=== PATIENT | female | born 2005 | race Caucasian/White ===

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

== ENCOUNTER 2023-09-19 09:17 | Emergency (ER) | payer OTHER ==
[2023-09-19 09:25] VITALS: RESP 18; TEMP 98.4; BMI 25.6
[2023-09-19] MEDS ORDERED: ACETAMINOPHEN 325 MG TABLET (FP) ONE (10:31)
[2023-09-19] MEDS: ACETAMINOPHEN 325 MG TABLET (FP) PO ONE (10:35)
[2023-09-19 10:36] LABS: URINE APPEARANCE CLEAR; URINE BILIRUBIN NEGATIVE (NEGATIVE); URINE COLOR YELLOW; URINE GLUCOSE (UA) NEGATIVE (NEGATIVE); URINE KETONE NEGATIVE (NEGATIVE); URINE LEUK ESTERASE NEGATIVE (NEGATIVE); URINE NITRITE NEGATIVE (NEGATIVE); URINE PROTEIN NEGATIVE (NEGATIVE); URINE UROBILINOGEN 0.2 mg/dL (0.2-1.0)
[2023-09-19 10:39] LABS: HCG,QUALITATIVE URINE Positive
[2023-09-19 14:43] VITALS: BP 118/60; PULSE 74
== END 2023-09-19 14:43 | disposition home or self-care (01) ==
LOC: JER 09:17
DX: O26.891 Other specified pregnancy related conditions, first trimester (principal); R10.30 Lower abdominal pain, unspecified; O99.891 Other specified diseases and conditions complicating pregnancy; R11.0 Nausea; Z3A.01 Less than 8 weeks gestation of pregnancy
CPT/HCPCS: 36415; 76817-TC; 81003; 84702; 84703; 87086; 99284-25

== ENCOUNTER 2023-10-25 08:43 | Emergency (ER) | payer OTHER ==
[2023-10-25 08:57] VITALS: BMI 30.4
[2023-10-25] MEDS ORDERED: ACETAMINOPHEN INJECTION 100 ML IVPB ONE (09:53)
[2023-10-25] MEDS ORDERED: ONDANSETRON 4 MG/2 ML VIAL ONE (09:54)
[2023-10-25] MEDS: ONDANSETRON 4 MG/2 ML VIAL IVPUSH ONE (10:22)
[2023-10-25] MEDS: ACETAMINOPHEN 1000 MG/100 ML BAG IVPB ONE (10:22)
[2023-10-25] MEDS: SODIUM CHLORIDE 1,000 ML IV ONE (10:22)
[2023-10-25 10:47] LABS: BASO % 0.1 % (0-2.0); EOS % 0.9 % (0-4.5); HEMATOCRIT 37.1 % (32.4-45.2); HEMOGLOBIN 11.5 GM/dL (10.7-15.3); LYMPH % 21.7 % (8-40); MCH 21.9 pg (25.7-33.7); MEAN CELL VOLUME 70.4 fl (80-96); MEAN PLT VOLUME 8.4 fl (7.5-11.1); MONO % 9.6 % (3.8-10.2); NEUT % 67.7 % (42.8-82.8); PLATELET COUNT 251 10^3/uL (134-434); RBC 5.27 M/mm3 (3.60-5.2); RDW 14.7 % (11.6-15.6); WHITE BLOOD COUNT 14.9 K/mm3 (4.0-10.0)
[2023-10-25 10:56] LABS: INR 1.08 (0.83-1.09); PROTHROMBIN TIME (PATIENT) 12.2 SEC (9.7-13.0)
[2023-10-25 10:57] LABS: ACTIVATED PTT 27.9 SECONDS (25.2-36.5)
[2023-10-25 11:00] LABS: CHLORIDE 104 mmol/L (98-107); POTASSIUM 4.1 mmol/L (3.5-5.1); SODIUM 136 mmol/L (136-145)
[2023-10-25 11:02] LABS: ALBUMIN 3.7 g/dl (3.4-5.0); ANION GAP 6 mmol/L (4-13); CALCIUM 9.5 mg/dL (8.5-10.1); CO2 26 mmol/L (21-32)
[2023-10-25 11:04] LABS: BLOOD UREA NITROGEN 9.2 mg/dL (7-18); GLUCOSE,RANDOM 90 mg/dL (74-106); MAGNESIUM 1.9 mg/dL (1.8-2.4)
[2023-10-25 11:06] LABS: CREATININE 0.6 mg/dL (0.55-1.3); SGOT/AST 17 U/L (15-37); SGPT/ALT 20 U/L (13-61)
[2023-10-25 11:07] LABS: PHOSPHOROUS 2.9 mg/dL (2.5-4.9)
[2023-10-25 11:08] LABS: BILIRUBIN,TOTAL 0.3 mg/dL (0.2-1); TOT PROT 7.5 g/dl (6.4-8.2)
[2023-10-25 11:09] LABS: ALK PHOS 62 U/L (45-117)
[2023-10-25 11:11] LABS: URINE APPEARANCE CLEAR; URINE BILIRUBIN NEGATIVE (NEGATIVE); URINE COLOR YELLOW; URINE GLUCOSE (UA) NEGATIVE (NEGATIVE); URINE KETONE NEGATIVE (NEGATIVE); URINE LEUK ESTERASE NEGATIVE (NEGATIVE); URINE NITRITE NEGATIVE (NEGATIVE); URINE PROTEIN NEGATIVE (NEGATIVE); URINE UROBILINOGEN 0.2 mg/dL (0.2-1.0)
[2023-10-25 11:19] VITALS: TEMP 98.6
[2023-10-25] MEDS ORDERED: MAGNESIUM SULFATE IN WATER 2 GM/50 ML IVPB IVPB ONE (11:31)
[2023-10-25] MEDS ORDERED: METOCLOPRAMIDE HCL INJECTION 10 MG/2 ML VIAL ONE (11:31)
[2023-10-25] MEDS: LACTATED RINGERS SOLUTION 1000 ML INFUS.BAG IV ONE (11:53)
[2023-10-25] MEDS: METOCLOPRAMIDE HCL INJECTION 10 MG/2 ML VIAL IVPUSH ONE (11:53)
[2023-10-25 12:03] LABS: ANISOCYTOSIS 0; MACROCYTOSIS 0
[2023-10-25] MEDS: MAGNESIUM SULF 50% (8.12 MEQ/2 ML-1 GM VIAL) IVPB ONE (12:57)
[2023-10-25 14:53] VITALS: BP 98/68; PULSE 72; RESP 16
== END 2023-10-25 14:54 | disposition home or self-care (01) ==
LOC: JER 08:43
PROC: 3E033NZ Introduction of Analgesics, Hypnotics, Sedatives into Peripheral Vein, Percutaneous Approach (ICD-10-PCS; principal; 2023-10-25)
PROC: 3E033GC Introduction of Other Therapeutic Substance into Peripheral Vein, Percutaneous Approach (ICD-10-PCS; 2023-10-25)
PROC: 3E033GC Introduction of Other Therapeutic Substance into Peripheral Vein, Percutaneous Approach (ICD-10-PCS; 2023-10-25)
PROC: 3E033GC Introduction of Other Therapeutic Substance into Peripheral Vein, Percutaneous Approach (ICD-10-PCS; 2023-10-25)
PROC: 3E0337Z Introduction of Electrolytic and Water Balance Substance into Peripheral Vein, Percutaneous Approach (ICD-10-PCS; 2023-10-25)
DX: O21.9 Vomiting of pregnancy, unspecified (principal); O99.891 Other specified diseases and conditions complicating pregnancy; R05.9 Cough, unspecified; R09.81 Nasal congestion; R06.02 Shortness of breath; R51.9 Headache, unspecified; R30.0 Dysuria; O26.891 Other specified pregnancy related conditions, first trimester; R10.30 Lower abdominal pain, unspecified; O99.281 Endocrine, nutritional and metabolic diseases complicating pregnancy, first trimester; D35.2 Benign neoplasm of pituitary gland; Z3A.01 Less than 8 weeks gestation of pregnancy; Z20.822 Contact with and (suspected) exposure to COVID-19
CPT/HCPCS: 0241U-QW; 36415; 76817-TC; 80053; 81003; 82550; 83735; 84100; 84146; 84484; 84702; 84703; 85025; 85610; 85730; 86850; 86900; 86901; 87086; 93005; 93010; 99285-25; J0131